=== PATIENT | female | born 1985 | race Two or more races ===

== ENCOUNTER → 2021-12-01 | Outpatient (CLI) | payer OTHER ==
[2015-05-02 13:01] VITALS: BP 109/71
[~2021-12-01] MED LIST: ACET-704 PO; IBUP-1060 PO
== END ==
LOC: SPEC 12:56
PROVIDERS: ATTEND Obstetrics & Gynecology
DX: N89.8 Other specified noninflammatory disorders of vagina (principal)
CPT/HCPCS: Q0111